=== PATIENT | female | born 1960 | race Caucasian/White ===

== ENCOUNTER 2021-09-28 06:39 | Emergency (ER) | payer MEDICARE ==
[~2021-09-28] VITALS: Ht 160 cm; Wt 83.0 kg
--- NOTE | 2021-09-28 06:47 | NUR ---
BIBS C/O VOMITTING X1DAY TESTED POSITIVE FOR COVID THDAY. PT A/OX3. TOLERATING R/A WELL AT 98%. CONNECTED PT TO POX AND MONITOR.
[2021-09-28] MEDS ORDERED: ONDANSETRON 4 MG TAB.RAPDIS ONE (07:13)
[2021-09-28] MEDS ORDERED: ONDANSETRON 4 MG TAB.RAPDIS SL ONE (07:30)
[2021-09-28] MEDS ORDERED: ONDA4TAB11 PO (08:37)
[2021-09-28] MEDS ORDERED: METOCLOPRAMIDE HCL 10 MG/2 ML VIAL ONE (08:58)
[2021-09-28] MEDS ORDERED: IV NS 0.9% 1,000 ML BAG IV ONE (09:00)
[2021-09-28] MEDS ORDERED: METOCLOPRAMIDE HCL 10 MG/2 ML VIAL IV ONE (09:00)
[2021-09-28 09:12] LABS: BASOPHILS % (AUTO) 0.5 % (0.0-2.0); EOSINOPHILS % (AUTO) 0.9 % (0.0-6.0); HEMATOCRIT 42 % (33-45); HEMOGLOBIN 13.9 g/dL (11.5-14.8); LYMPHOCYTES # (AUTO) 2.4 K/uL (0.8-4.8); MEAN CORPUSCULAR HGB CONC 34 g/dl (31.0-36.0); MEAN CORPUSCULAR VOLUME 79 fL (82-100); MONOCYTES # (AUTO) 0.3 K/uL (0.1-1.30); NEUTROPHILS # (AUTO) 2.1 K/uL (1.8-8.9); NEUTROPHILS % (AUTO) 42.6 % (43.0-81.0); PLATELET COUNT (AUTO) 238 K/uL (150-450); RED BLOOD CELL COUNT(AUTO) 5.23 MIL/uL (4.0-5.2)
[2021-09-28 09:19] LABS: CREATININE 0.8 mg/dL (0.6-1.3); POTASSIUM 3.7 mmol/L (3.5-5.1)
[2021-09-28 09:25] LABS: BILIRUBIN,DIRECT 0.1 mg/dL (0.0-0.2); BILIRUBIN,TOTAL 0.3 mg/dL (0.2-1.0); TOTAL PROTEIN, SERUM 8.4 g/dL (6.4-8.2)
--- NOTE | 2021-09-28 10:45 | NUR ---
IV removed. Catheter intact and site benign. Pressure and 4x4 applied to site. No bleeding noted.Patient discharged to home in stable condition. Written and verbal after care instructions given. Patient verbalizes understanding of instruction.
[2021-09-28 12:47] VITALS: BP 145/70
[2021-09-28] MEDS ORDERED: METO-295 PO (20:10)
== END 2021-09-28 12:48 | disposition home or self-care (01) ==
LOC: ER 06:39
DX: U07.1 COVID-19 (principal); R11.2 Nausea with vomiting, unspecified; I10 Essential (primary) hypertension; Z86.69 Personal history of other diseases of the nervous system and sense organs; Z88.8 Allergy status to other drugs, medicaments and biological substances
CPT/HCPCS: 36415; 80048; 80076; 83690; 85025; 96361; 96374; 99283; J2765; J7030; Q0162

== ENCOUNTER 2021-09-28 17:32 | Emergency (ER) | payer MEDICARE ==
[~2021-09-28] VITALS: Ht 160 cm; Wt 90.7 kg
[~2021-09-28 17:32] MED LIST: ONDA4TAB11 PO
[2021-09-28 17:42] VITALS: BP 139/82
[2021-09-28] MEDS ORDERED: IV NS 0.9% 1,000 ML BAG IV ONE (18:30)
[2021-09-28] MEDS ORDERED: METOCLOPRAMIDE HCL 10 MG/2 ML VIAL IV ONE (18:30)
[2021-09-28] MEDS ORDERED: METOCLOPRAMIDE HCL 10 MG/2 ML VIAL ONE (18:45)
[2021-09-28] MEDS ORDERED: METO-295 PO (20:10)
== END 2021-09-28 20:59 | disposition home or self-care (01) ==
LOC: ER 17:33
DX: U07.1 COVID-19 (principal); R11.2 Nausea with vomiting, unspecified; I10 Essential (primary) hypertension; F41.9 Anxiety disorder, unspecified; Z86.69 Personal history of other diseases of the nervous system and sense organs; Z88.8 Allergy status to other drugs, medicaments and biological substances; Z79.899 Other long term (current) drug therapy
CPT/HCPCS: 96361; 96374; 99283; J2765